=== PATIENT | female | born 1965 | race Caucasian/White ===

== ENCOUNTER 2016-08-12 15:33 | Emergency (ER) | payer OTHER ==
[~2016-08-12] VITALS: Ht 162.6 cm; Wt 101.8 kg
[~2016-08-12 15:33] MED LIST: ADDERALL XR 1515 MG PO; ADDERALL10 MG PO; ALBUTEROL SULF8.5 GM IH; ALBUTEROL17 GM IH; ALBUTEROL2.5 MG/0.5 IH; BENADRYL50 MG/ML IM; BENTYL10 MG PO; CARISOPRODOL350 MG PO; CEPHALEXIN500 MG PO; CIPRO500 MG PO; CITALOPRAM HBR20 MG PO; CLOTRIMAZOLE10 MG PO; COSENTYX (150 MG/1 M SC; CYANOCOBAL1000 MCG/2 IM; CYMBALTA30 MG PO; DAILY VALUE1 EACH PO; DESYREL100 MG PO; DIAZEPAM5 MG PO; DITROPAN5 MG PO; Desyrel PO; ENDOCET 10-3251 EACH PO; ENDOCET 5-3251 EACH PO; FLAGYL500 MG PO; FUROSEMIDE20 MG PO; GABAPENTIN300 MG PO; GABAPENTIN400 MG PO; K-DUR20 MEQ PO; KLONOPIN0.5 M1 PO; LAMOTRIGINE25 MG PO; LASIX20 MG PO; LASIX40 MG PO; LEVAQUIN500 MG PO; LEVBID0.375 MG PO; LEVSIN0.125 MG PO; LIDODERM 5% P1 PATCH TD; MEDROL DOSEPAK4 MG PO; METHADONE10 MG PO; MICRO-K10 ME2 PO; MORPHINE SULFAT15 M1 PO; MORPHINE SULFAT30 M1 PO; MS CONTIN,ORAMO15 M1 PO; MS Contin,Oramorph S PO; MULTIVITAMIN; MULTIVITAMIN IV; NEURONTIN100 MG PO; NEURONTIN300 MG PO; NEXIUM20 MG PO; OXYBUTYNIN CHLOR5 MG PO; PERCOCET 5/31 TABLET PO; PERCOCET 7.51 TABLET PO; PHENERGAN25 MG PR; POTASSIUM CHLO10 ME4 PO; PREDNISOLONE AC15 ML BOTH EYES; PREDNISONE10 M1 PO; PREDNISONE10 MG PO; PREDNISONE20 MG PO; PROAIR HFA8.5 GM IH; PROMETHAZINE HC25 M1 PO; PROTONIX40 MG PO; Percocet 5/325,Endoc PO; Protonix PO; REGLAN5 MG PO; REMICADE10 MG/ML IV; ROBAXIN750 MG PO; Reglan PO; SIMVASTATIN20 MG PO; SIMVASTATIN40 MG PO; SLOW RELEASE I142 M1 PO; SOLU-MEDRO1000 MG/1 IV; SOLU-MEDRO40 MG/1 ML IV; SOLU-MEDROL; SOMA350 M1 PO; TIZANIDINE HCL4 MG PO; TRAZODONE HCL100 MG PO; TYLENOL EXTRA500 MG PO; VALIUM5 MG PO; VICODIN,LORT1 TABLET PO; VITAMIN D400 UNI4 PO; ZANAFLEX2 M1 PO; ZANAFLEX2 MG PO; ZANAFLEX4 MG PO; ZANTAC150 MG PO; ZITHROMAX Z-PA250 MG PO; ZOCOR40 MG PO; ZOFRAN ODT4 MG PO; ZOFRAN4 MG PO; Zocor PO; [UNRECOGNIZED DRUG - OTHER] IV
[2016-08-12 16:20] LABS: HEMATOCRIT 37.1 % (36.0-46.0); MCH 28.2 PG (29.0-34.0); MCHC 31.5 G/DL (30.0-36.0); MCV 89.4 FL (83-99); MEAN PLAT.VOLUME 8.9 uM^3 (9.5-12.4); PLATELET COUNT 326 K/uL (156-360); RBC DIS.WIDTH-CV 15.3 % (11.8-14.6); RBC DIS.WIDTH-SD 49.3 % (39-53); RED BLOOD COUNT 4.15 M/uL (3.80-5.20); WHITE BLOOD COUNT 11.3 K/uL (4.1-10.2)
[2016-08-12 16:31] LABS: CHLORIDE 93 mEq/L (99-109); SODIUM 134 mEq/L (136-147)
[2016-08-12 16:33] LABS: GLUCOSE 116 mg/dL (70-99)
[2016-08-12 16:34] LABS: ANION GAP 12 MEQ/L (2-14)
[2016-08-12 16:36] LABS: GFR ESTIMATE (CALCULATED) > 59 mL/min/
[2016-08-12 16:37] LABS: UREA NITROGEN (BUN) 5 mg/dL (9-23)
[2016-08-12] MEDS ORDERED: ULTRAM50 MG PO (16:57)
[2016-08-12 17:10] VITALS: BP 116/57
== END 2016-08-12 17:11 | disposition home or self-care (01) ==
LOC: EME 15:33
DX: M54.9 Dorsalgia, unspecified (principal); G89.29 Other chronic pain; S20.20XA Contusion of thorax, unspecified, initial encounter; Y04.0XXA Assault by unarmed brawl or fight, initial encounter; J44.9 Chronic obstructive pulmonary disease, unspecified; K21.9 Gastro-esophageal reflux disease without esophagitis; M35.00 Sjogren syndrome, unspecified
CPT/HCPCS: 71020; 80048; 85027; 99281; 99284

== ENCOUNTER 2016-10-29 13:49 | Inpatient (IN) | payer OTHER ==
[~2016-10-29] VITALS: Ht 167.6 cm; Wt 96.6 kg
[~2016-10-29 13:49] MED LIST changes: +ULTRAM50 MG PO
[2016-10-29 14:37] LABS: MCH 28.9 PG (29.0-34.0); MCHC 32.3 G/DL (30.0-36.0); MCV 89.5 FL (83-99); MEAN PLAT.VOLUME 8.9 uM^3 (9.5-12.4); PLATELET COUNT 358 K/uL (156-360); RBC DIS.WIDTH-CV 16.6 % (11.8-14.6); RBC DIS.WIDTH-SD 54.7 % (39-53); RED BLOOD COUNT 4.47 M/uL (3.80-5.20); WHITE BLOOD COUNT 9.9 K/uL (4.1-10.2)
[2016-10-29 14:48] LABS: CHLORIDE 97 mEq/L (99-109)
[2016-10-29 14:49] LABS: SODIUM 139 mEq/L (136-147)
[2016-10-29 14:51] LABS: GLUCOSE 151 mg/dL (70-99)
[2016-10-29 14:52] LABS: ANION GAP 13 MEQ/L (2-14)
[2016-10-29 14:53] LABS: TOTAL BILIRUBIN 0.3 mg/dL (0.0-1.0)
[2016-10-29 14:54] LABS: ALKALINE PHOSPHATASE 152 IU/L (3-129); GFR ESTIMATE (CALCULATED) > 59 mL/min/
[2016-10-29 14:56] LABS: UREA NITROGEN (BUN) 3 mg/dL (9-23)
[2016-10-29 14:58] LABS: POTASSIUM 2.4 mEq/L (3.7-5.4)
[2016-10-29 15:03] LABS: QUANTITATIVE HCG 5.8 MIU/ML
[2016-10-29 16:16] LABS: ADD MIUA? YES; BILIRUBIN NEGATIVE; BLOOD SMALL; COLOR YELLOW ((YELLOW)); GLUCOSE (STRIP) NEGATIVE; KETONES NEGATIVE; LEUKOCYTES SMALL; NITRITE POSITIVE; PROTEIN (STRIP) NEGATIVE; SPECIFIC GRAVITY 1.008 (1.000-1.030); UROBILINOGEN 0.2 MG/DL (0.2-1.0)
[2016-10-29 16:25] LABS: BACTERIA 1+ /HPF; EPITHELIAL CELLS RARE /HPF; HYALINE CASTS TNTC /LPF; MUCUS NONE SEEN /LPF; RED BLOOD CELLS 0-5 /HPF (0-5); UCUL ADDED? NO; WHITE BLOOD CELLS 20-30 /HPF (0-5)
[2016-10-29 17:21] LABS: MAGNESIUM 1.2 mg/dL (1.3-2.7)
[2016-10-29] MEDS ORDERED: CITALOPRAM HBR40 MG PO (21:47)
[2016-10-29] MEDS ORDERED: NEURONTIN100 MG PO ×2 (21:48)
[2016-10-29] MEDS ORDERED: LIDOCAINE700 MG TD (21:50)
[2016-10-29] MEDS ORDERED: PREDNISONE20 MG PO (21:51)
[2016-10-29] MEDS ORDERED: PAXIL10 MG PO (21:52)
[2016-10-29] MEDS ORDERED: OXYCODONE HCL15 MG PO (21:52)
[2016-10-30] VITALS (12 sets, daily range): BP systolic 79–131; BP diastolic 38–61
[2016-10-30 06:39] LABS: HEMATOCRIT 34.2 % (36.0-46.0); MCH 28.7 PG (29.0-34.0); MCV 92.7 FL (83-99); MEAN PLAT.VOLUME 9.4 uM^3 (9.5-12.4); NRBC (%) 0.3 /100 WBC (0-0); PLATELET COUNT 295 K/uL (156-360); RBC DIS.WIDTH-CV 17.2 % (11.8-14.6); RBC DIS.WIDTH-SD 58.7 % (39-53); RED BLOOD COUNT 3.69 M/uL (3.80-5.20); WHITE BLOOD COUNT 7.1 K/uL (4.1-10.2)
[2016-10-30 06:47] LABS: ALKALINE PHOSPHATASE 111 IU/L (3-129); ANION GAP 6 MEQ/L (2-14); CHLORIDE 108 MEQ/L (99-109); GFR ESTIMATE (CALCULATED) > 59 mL/min/; MAGNESIUM 1.6 mg/dl (1.3-2.7); SAMPLE HEMOLYSIS CHECK 0; SAMPLE ICTERIC CHECK 0; SAMPLE LIPEMIA CHECK 0; SODIUM 145 MEQ/L (136-147); TOTAL BILIRUBIN 0.3 MG/DL (0.0-1.0); UREA NITROGEN (BUN) 2 mg/dL (9-23)
[2016-10-30 06:52] LABS: GLUCOSE 80 mg/dL (70-99); POTASSIUM 3.3 MEQ/L (3.7-5.4)
[2016-10-30 19:30] LABS: ANION GAP 6 MEQ/L (2-14); CHLORIDE 110 MEQ/L (99-109); GFR ESTIMATE (CALCULATED) > 59 mL/min/; POTASSIUM 3.2 MEQ/L (3.7-5.4); SAMPLE HEMOLYSIS CHECK 0; SAMPLE ICTERIC CHECK 0; SAMPLE LIPEMIA CHECK 0; SODIUM 141 MEQ/L (136-147); UREA NITROGEN (BUN) 2 mg/dL (9-23)
[2016-10-30 19:51] LABS: GLUCOSE 112 mg/dL (70-99)
[2016-10-31 07:01] LABS: HEMATOCRIT 34.7 % (36.0-46.0); MCH 28.8 PG (29.0-34.0); MCHC 30.8 G/DL (30.0-36.0); MCV 93.5 FL (83-99); MEAN PLAT.VOLUME 8.8 uM^3 (9.5-12.4); PLATELET COUNT 249 K/uL (156-360); RBC DIS.WIDTH-CV 17.4 % (11.8-14.6); RBC DIS.WIDTH-SD 59.9 % (39-53); RED BLOOD COUNT 3.71 M/uL (3.80-5.20)
[2016-10-31 07:13] LABS: WHITE BLOOD COUNT 11.6 K/uL (4.1-10.2)
[2016-10-31 07:28] LABS: ALKALINE PHOSPHATASE 120 IU/L (3-129); ANION GAP 7 MEQ/L (2-14); CHLORIDE 109 MEQ/L (99-109); DIRECT BILIRUBIN 0.1 mg/dL (0.0-0.3); GFR ESTIMATE (CALCULATED) > 59 mL/min/; GLUCOSE 88 mg/dL (70-99); POTASSIUM 3.6 MEQ/L (3.7-5.4); SAMPLE HEMOLYSIS CHECK 0; SAMPLE ICTERIC CHECK 0; SAMPLE LIPEMIA CHECK 0; SODIUM 141 MEQ/L (136-147); TOTAL BILIRUBIN 0.3 MG/DL (0.0-1.0)
[2016-10-31 07:40] LABS: UREA NITROGEN (BUN) < 2 mg/dL (9-23)
[2016-10-31 07:45] VITALS: BP 112/60
[2016-10-31 12:56] LABS: INTERNAL CONTROL VALID? YES
[2016-10-31 13:28] LABS: C DIFF TOXIN NEGATIVE (NEGATIVE); PROBE CHECK PASS; SPECIMEN PROCESSING CONTROL PASS
[2016-10-31 16:06] VITALS: BP 125/63
[2016-10-31 22:40] VITALS: BP 128/65
[2016-11-01 06:41] LABS: BASOPHIL COUNT 0.1 K/uL (0-0.1); EOSINOPHIL (%) 0.5 % (0-5); EOSINOPHIL COUNT 0.1 K/uL (0-0.3); HEMATOCRIT 35.5 % (36.0-46.0); IMMATURE GRANULOCYTE (%) 0.7 % (0.0-0.7); IMMATURE GRANULOCYTE COUNT 0.1 K/uL; INSTRUMENT ABS NEUTROPHIL CT 12.6 K/uL; LYMPHOCYTE COUNT 2.1 K/uL (1.0-2.8); MCH 28.9 PG (29.0-34.0); MCHC 31.5 G/DL (30.0-36.0); MCV 91.5 FL (83-99); MEAN PLAT.VOLUME 9.3 uM^3 (9.5-12.4); MONOCYTE (%) 7.4 % (3-12); MONOCYTE COUNT 1.2 K/uL (0-0.8); NEUTROPHIL (%) 78.3 % (45-76); NEUTROPHIL COUNT 12.6 K/uL (1.8-6.4); PLATELET COUNT 263 K/uL (156-360); RBC DIS.WIDTH-CV 17.2 % (11.8-14.6); RED BLOOD COUNT 3.88 M/uL (3.80-5.20)
[2016-11-01 06:42] LABS: WHITE BLOOD COUNT 16.1 K/uL (4.1-10.2)
[2016-11-01 07:00] VITALS: BP 134/88
[2016-11-01 07:20] LABS: ALKALINE PHOSPHATASE 120 IU/L (3-129); ANION GAP 9 MEQ/L (2-14); CHLORIDE 105 MEQ/L (99-109); GFR ESTIMATE (CALCULATED) > 59 mL/min/; GLUCOSE 102 mg/dL (70-99); POTASSIUM 3.5 MEQ/L (3.7-5.4); SAMPLE HEMOLYSIS CHECK 0; SAMPLE ICTERIC CHECK 0; SAMPLE LIPEMIA CHECK 0; SODIUM 140 MEQ/L (136-147)
[2016-11-01 07:24] LABS: TOTAL BILIRUBIN 0.6 MG/DL (0.0-1.0); UREA NITROGEN (BUN) < 2 mg/dL (9-23)
[2016-11-01 11:09] VITALS: BP 110/78
[2016-11-01 14:35] VITALS: BP 117/60
[2016-11-01 22:34] VITALS: BP 111/76
[2016-11-02 03:36] VITALS: BP 125/62
[2016-11-02 07:12] LABS: BASOPHIL COUNT 0.1 K/uL (0-0.1); EOSINOPHIL COUNT 0.1 K/uL (0-0.3); HEMATOCRIT 32.3 % (36.0-46.0); IMMATURE GRANULOCYTE (%) 0.5 % (0.0-0.7); IMMATURE GRANULOCYTE COUNT 0.1 K/uL; INSTRUMENT ABS NEUTROPHIL CT 9.3 K/uL; LYMPHOCYTE COUNT 2.3 K/uL (1.0-2.8); MCH 29.3 PG (29.0-34.0); MCHC 32.2 G/DL (30.0-36.0); MEAN PLAT.VOLUME 9.4 uM^3 (9.5-12.4); MONOCYTE (%) 10.5 % (3-12); MONOCYTE COUNT 1.4 K/uL (0-0.8); NEUTROPHIL (%) 69.9 % (45-76); NEUTROPHIL COUNT 9.3 K/uL (1.8-6.4); PLATELET COUNT 259 K/uL (156-360); RBC DIS.WIDTH-CV 17.5 % (11.8-14.6); RBC DIS.WIDTH-SD 58.9 % (39-53); RED BLOOD COUNT 3.55 M/uL (3.80-5.20); WHITE BLOOD COUNT 13.3 K/uL (4.1-10.2)
[2016-11-02 07:25] VITALS: BP 122/84
[2016-11-02 08:02] LABS: ALKALINE PHOSPHATASE 104 IU/L (3-129); ANION GAP 9 MEQ/L (2-14); CHLORIDE 104 MEQ/L (99-109); GFR ESTIMATE (CALCULATED) > 59 mL/min/; GLUCOSE 96 mg/dL (70-99); POTASSIUM 3.4 MEQ/L (3.7-5.4); SAMPLE HEMOLYSIS CHECK 0; SAMPLE ICTERIC CHECK 0; SAMPLE LIPEMIA CHECK 0; SODIUM 145 MEQ/L (136-147); TOTAL BILIRUBIN 0.6 MG/DL (0.0-1.0)
[2016-11-02 08:04] LABS: UREA NITROGEN (BUN) < 2 mg/dL (9-23)
[2016-11-02] MEDS ORDERED: ADVAIR HFA120 INHALA IH (09:06)
[2016-11-02] MEDS ORDERED: PROAIR HFA8.5 GM IH (09:06)
[2016-11-02] MEDS ORDERED: LEVOFLOXACIN750 MG PO (09:06)
[2016-11-02] MEDS ORDERED: SPIRIVA RESPIMAT4 GM IH (09:06)
[2016-11-02] MEDS ORDERED: METRONIDAZOLE500 MG PO (09:06)
[2016-11-02] MEDS ORDERED: PREDNISONE20 MG PO (09:06)
[2016-11-02 10:55] VITALS: BP 123/60
[2016-11-02 19:20] VITALS: BP 101/56
[2016-11-02 22:52] VITALS: BP 112/59
[2016-11-03 03:10] VITALS: BP 112/68; BP 142/79
[2016-11-03 07:13] VITALS: BP 108/64
[2016-11-03 10:49] VITALS: BP 100/68
== END 2016-11-03 15:49 | disposition home or self-care (01) | DRG 392 ==
LOC: EME 13:49 → EDOF 21:07 → 5EAST 21:07 → 3EAST 10-30 00:15 → 5EAST 10-30 18:12
PROVIDERS: Internal Medicine; Nurse Practitioner Adult Health; Physician Assistant
DX: K52.9 Noninfective gastroenteritis and colitis, unspecified (principal); J90 Pleural effusion, not elsewhere classified; N39.0 Urinary tract infection, site not specified; J44.9 Chronic obstructive pulmonary disease, unspecified; E86.0 Dehydration; E83.42 Hypomagnesemia; M35.00 Sjogren syndrome, unspecified; E87.6 Hypokalemia; E66.01 Morbid (severe) obesity due to excess calories; K21.9 Gastro-esophageal reflux disease without esophagitis; R09.02 Hypoxemia; F32.9 Major depressive disorder, single episode, unspecified; M45.9 Ankylosing spondylitis of unspecified sites in spine; F17.210 Nicotine dependence, cigarettes, uncomplicated; F90.0 Attention-deficit hyperactivity disorder, predominantly inattentive type; M79.7 Fibromyalgia; Z59.0 Homelessness; F41.9 Anxiety disorder, unspecified; E78.5 Hyperlipidemia, unspecified; Z68.34 Body mass index [BMI] 34.0-34.9, adult; B96.1 Klebsiella pneumoniae [K. pneumoniae] as the cause of diseases classified elsewhere
CPT/HCPCS: 71020; 74177; 80048; 80048 91; 80053; 80076; 81003; 83605; 83630; 83735; 84100; 84702; 85025; 85027; 87077; 87086; 87177; 87186; 87493; 87506; 88305; 88313; 88342 TC; 93005; 94640; 94640 76; 94760; 94799; 99202; 99281; 99285; J0744; J1644; J2405; J3475; J3480; J7030; J7512; S0028; S0030

== ENCOUNTER 2017-01-26 11:44 | Emergency (ER) | payer OTHER ==
[~2017-01-26] VITALS: Ht 162.6 cm; Wt 94.8 kg
[~2017-01-26 11:44] MED LIST changes: +ADVAIR HFA120 INHALA IH; +CITALOPRAM HBR40 MG PO; +LEVOFLOXACIN750 MG PO; +LIDOCAINE700 MG TD; +METRONIDAZOLE500 MG PO; +OXYCODONE HCL15 MG PO; +PAXIL10 MG PO; +SPIRIVA RESPIMAT4 GM IH
[2017-01-26] MEDS ORDERED: LIDODERM 5% P1 PATCH TD (14:04)
[2017-01-26] MEDS ORDERED: BACLOFEN10 MG PO (14:04)
[2017-01-26 14:18] VITALS: BP 141/70
== END 2017-01-26 14:32 | disposition home or self-care (01) ==
LOC: EME 11:44
DX: M25.859 Other specified joint disorders, unspecified hip (principal); M16.11 Unilateral primary osteoarthritis, right hip; L98.9 Disorder of the skin and subcutaneous tissue, unspecified; Z88.2 Allergy status to sulfonamides; Z88.0 Allergy status to penicillin; Z88.6 Allergy status to analgesic agent
CPT/HCPCS: 73502; 99281; 99283

== ENCOUNTER 2017-02-16 14:27 | Emergency (ER) | payer OTHER ==
[~2017-02-16] VITALS: Ht 167.6 cm; Wt 95.0 kg
[~2017-02-16 14:27] MED LIST changes: +BACLOFEN10 MG PO
[2017-02-16 17:20] VITALS: BP 124/69
== END 2017-02-16 17:25 | disposition home or self-care (01) ==
LOC: EME 14:27
DX: M79.89 Other specified soft tissue disorders (principal); M25.551 Pain in right hip; S39.012A Strain of muscle, fascia and tendon of lower back, initial encounter; X58.XXXA Exposure to other specified factors, initial encounter; G89.29 Other chronic pain; Z79.891 Long term (current) use of opiate analgesic; R11.0 Nausea; Z79.52 Long term (current) use of systemic steroids; F17.200 Nicotine dependence, unspecified, uncomplicated
CPT/HCPCS: 99281; 99283; J3010

== ENCOUNTER 2017-05-14 10:30 | Day surgery (SDC) | payer OTHER ==
[~2017-05-14] VITALS: Ht 167.6 cm; Wt 91.0 kg
[~2017-05-14 10:30] MED LIST changes: +ANTIDEPRESSANT PO; +BENTYL20 MG PO; +EFFEXOR XR150 MG PO; +IRON325 M1 PO
[2017-05-14 11:16] VITALS: BP 117/94
[2017-05-14 15:24] VITALS: BP 142/67
[2017-05-14 15:50] VITALS: BP 139/80
== END 2017-05-14 16:05 | disposition home or self-care (01) ==
LOC: SDC 10:30
DX: T85.113A Breakdown (mechanical) of implanted electronic neurostimulator, generator, initial encounter (principal); G89.4 Chronic pain syndrome; J44.9 Chronic obstructive pulmonary disease, unspecified; E66.9 Obesity, unspecified; Z68.33 Body mass index [BMI] 33.0-33.9, adult; D86.9 Sarcoidosis, unspecified; M81.0 Age-related osteoporosis without current pathological fracture; K21.9 Gastro-esophageal reflux disease without esophagitis; E78.5 Hyperlipidemia, unspecified; Z88.2 Allergy status to sulfonamides; F17.210 Nicotine dependence, cigarettes, uncomplicated
CPT/HCPCS: 94640; J0330; J1100; J1170; J2250; J2405; J3010; J3370

== ENCOUNTER 2017-05-21 10:32 | Emergency (ER) | payer OTHER ==
[~2017-05-21] VITALS: Ht 162.6 cm; Wt 95.0 kg
[2017-05-21 12:10] LABS: BASOPHIL COUNT 0.1 K/uL (0-0.1); EOSINOPHIL (%) 0.2 % (0-5); HEMATOCRIT 39.3 % (36.0-46.0); IMMATURE GRANULOCYTE (%) 0.9 % (0.0-0.7); IMMATURE GRANULOCYTE COUNT 0.2 K/uL; INSTRUMENT ABS NEUTROPHIL CT 12.4 K/uL; LYMPHOCYTE COUNT 4.5 K/uL (1.0-2.8); MCH 26.3 PG (29.0-34.0); MCHC 31.6 G/DL (30.0-36.0); MCV 83.3 FL (83-99); MEAN PLAT.VOLUME 8.6 uM^3 (9.5-12.4); MONOCYTE (%) 4.8 % (3-12); MONOCYTE COUNT 0.9 K/uL (0-0.8); NEUTROPHIL COUNT 12.4 K/uL (1.8-6.4); PLATELET COUNT 518 K/uL (156-360); RBC DIS.WIDTH-CV 19.1 % (11.8-14.6); RED BLOOD COUNT 4.72 M/uL (3.80-5.20)
[2017-05-21 12:17] LABS: CHLORIDE 99 mEq/L (99-109); POTASSIUM 3.9 mEq/L (3.7-5.4); SODIUM 136 mEq/L (136-147)
[2017-05-21 12:20] LABS: GLUCOSE 133 mg/dL (70-99)
[2017-05-21 12:21] LABS: ANION GAP 11 MEQ/L (2-14)
[2017-05-21 12:22] LABS: TOTAL BILIRUBIN 0.4 mg/dL (0.0-1.0)
[2017-05-21 12:23] LABS: ALKALINE PHOSPHATASE 130 IU/L (3-129); GFR ESTIMATE (CALCULATED) > 59 mL/min/
[2017-05-21 12:24] LABS: UREA NITROGEN (BUN) 6 mg/dL (9-23)
[2017-05-21 12:30] LABS: TROP-I INTERPRETATION NEGATIVE; TROPONIN-I < 0.01 ng/mL (0.0-0.30)
[2017-05-21 14:39] VITALS: BP 135/89
== END 2017-05-21 14:41 | disposition left against medical advice (07) ==
LOC: EME 10:32
PROVIDERS: Emergency Medicine
DX: R06.2 Wheezing (principal); R06.02 Shortness of breath; J44.9 Chronic obstructive pulmonary disease, unspecified; D86.9 Sarcoidosis, unspecified; M79.7 Fibromyalgia; E78.5 Hyperlipidemia, unspecified; F17.200 Nicotine dependence, unspecified, uncomplicated; Z88.0 Allergy status to penicillin; Z88.8 Allergy status to other drugs, medicaments and biological substances
CPT/HCPCS: 71020; 80053; 83880; 84484; 85025; 94640; 99281; 99284; J2930; J3475

== ENCOUNTER 2017-08-27 18:22 | Inpatient (IN) | payer OTHER ==
[~2017-08-27] VITALS: Ht 162.6 cm; Wt 95.4 kg
[2017-08-27 19:16] LABS: HEMOGLOBIN 13.6 G/DL (11.9-15.5); MCH 30.1 PG (29.0-34.0); MCHC 32.4 G/DL (30.0-36.0); MCV 92.9 FL (83-99); PLATELET COUNT 417 K/uL (156-360); RBC DIS.WIDTH-SD 54.6 % (39-53); RED BLOOD COUNT 4.52 M/uL (3.80-5.20); WHITE BLOOD COUNT 20.5 K/uL (4.1-10.2)
[2017-08-27 19:24] LABS: ALBUMIN 3.8 g/dL (3.2-4.8)
[2017-08-27 19:25] LABS: CHLORIDE 96 mEq/L (99-109); POTASSIUM 4.5 mEq/L (3.7-5.4); SODIUM 138 mEq/L (136-147)
[2017-08-27 19:27] LABS: GLUCOSE 80 mg/dL (70-99); TOTAL PROTEIN 6.6 g/dL (6.4-8.3)
[2017-08-27 19:29] LABS: TOTAL BILIRUBIN 0.1 mg/dL (0.0-1.0)
[2017-08-27 19:30] LABS: ALKALINE PHOSPHATASE 121 IU/L (3-129)
[2017-08-27 19:31] LABS: CREATININE 0.7 mg/dL (0.6-1.3); GFR ESTIMATE (CALCULATED) > 59 mL/min/
[2017-08-27 19:32] LABS: AST (GOT) 16 IU/L (2-34); UREA NITROGEN (BUN) 7 mg/dL (9-23)
[2017-08-27 19:34] LABS: ALT (GPT) 20 IU/L (3-49)
[2017-08-27 19:40] LABS: QUANTITATIVE HCG < 4.0 MIU/ML
[2017-08-27 20:25] LABS: LIPASE 11 U/L (1.0-51.0)
[2017-08-27 21:02] LABS: APPEARANCE CLEAR ((CLEAR)); BILIRUBIN NEGATIVE; BLOOD SMALL; COLOR COLORLESS ((YELLOW)); GLUCOSE (STRIP) NEGATIVE; KETONES NEGATIVE; LEUKOCYTES NEGATIVE; NITRITE NEGATIVE; PROTEIN (STRIP) NEGATIVE; SPECIFIC GRAVITY 1.011 (1.000-1.030); UROBILINOGEN 0.2 MG/DL (0.2-1.0)
[2017-08-27 21:12] LABS: BACTERIA NONE SEEN /HPF; EPITHELIAL CELLS RARE /HPF; MUCUS NONE SEEN /LPF; RED BLOOD CELLS 0-5 /HPF (0-5); UCUL ADDED? NO; WHITE BLOOD CELLS 0-5 /HPF (0-5)
[2017-08-27 21:16] LABS: TROP-I INTERPRETATION NEGATIVE; TROPONIN-I < 0.01 ng/mL (0.0-0.30)
[2017-08-27 22:42] LABS: D-DIMER ELISA < 150.00 ng/mLDDU (<230)
[2017-08-27 23:00] LABS: TROP-I INTERPRETATION NEGATIVE; TROPONIN-I < 0.01 ng/mL (0.0-0.30)
[2017-08-28 06:12] VITALS: BP 156/76
== END 2017-08-28 06:05 | disposition left against medical advice (07) | DRG 192 ==
LOC: EME 18:22 → EXP 18:22 → EDOF 08-28 00:43 → CANRESERV 08-28 00:45 → ENRESERV 08-28 00:45 → EDOF 08-28 05:40
PROVIDERS: Physician Assistant Medical
DX: J44.1 Chronic obstructive pulmonary disease with (acute) exacerbation (principal); R10.11 Right upper quadrant pain; E78.5 Hyperlipidemia, unspecified; F32.9 Major depressive disorder, single episode, unspecified; F41.9 Anxiety disorder, unspecified; G89.29 Other chronic pain; M79.7 Fibromyalgia; M45.9 Ankylosing spondylitis of unspecified sites in spine; K59.00 Constipation, unspecified; M35.00 Sjogren syndrome, unspecified; G43.909 Migraine, unspecified, not intractable, without status migrainosus; F17.210 Nicotine dependence, cigarettes, uncomplicated; Z79.891 Long term (current) use of opiate analgesic; Z88.2 Allergy status to sulfonamides; Z88.0 Allergy status to penicillin
CPT/HCPCS: 71046; 74177; 80053; 81003; 83605; 83690; 84484; 84702; 85027; 85379; 87040; 93005; 94640; 94640 76; 94799; 99202; 99281; 99285; C9113; J1100; J1956; J2270; J2405; J3010; J7030

== ENCOUNTER 2017-12-11 08:57 | Emergency (ER) | payer OTHER ==
[~2017-12-11] VITALS: Ht 167.6 cm; Wt 94.1 kg
[2017-12-11] MEDS ORDERED: CEFUROXIME500 MG PO (09:43)
[2017-12-11 09:46] LABS: HEMATOCRIT 39.9 % (36.0-46.0); HEMOGLOBIN 13.3 G/DL (11.9-15.5); MCH 31.1 PG (29.0-34.0); MCHC 33.3 G/DL (30.0-36.0); MCV 93.4 FL (83-99); PLATELET COUNT 311 K/uL (156-360); RBC DIS.WIDTH-CV 13.1 % (11.8-14.6); RBC DIS.WIDTH-SD 45.3 % (39-53); RED BLOOD COUNT 4.27 M/uL (3.80-5.20); WHITE BLOOD COUNT 8.2 K/uL (4.1-10.2)
[2017-12-11 09:55] LABS: ALBUMIN 3.5 g/dL (3.2-4.8); CHLORIDE 99 mEq/L (99-109); POTASSIUM 4.7 mEq/L (3.7-5.4); SODIUM 139 mEq/L (136-147)
[2017-12-11 09:58] LABS: GLUCOSE 93 mg/dL (70-99); TOTAL PROTEIN 6.4 g/dL (6.4-8.3)
[2017-12-11 09:59] LABS: TOTAL BILIRUBIN 0.2 mg/dL (0.0-1.0)
[2017-12-11 10:01] LABS: ALKALINE PHOSPHATASE 129 IU/L (3-129); CREATININE 0.9 mg/dL (0.6-1.3); GFR ESTIMATE (CALCULATED) > 59 mL/min/
[2017-12-11 10:02] LABS: UREA NITROGEN (BUN) 4 mg/dL (9-23)
[2017-12-11 10:03] LABS: AST (GOT) 14 IU/L (2-34)
[2017-12-11 10:04] LABS: ALT (GPT) 9 IU/L (3-49)
[2017-12-11 10:08] LABS: TROP-I INTERPRETATION NEGATIVE; TROPONIN-I < 0.01 ng/mL (0.0-0.30)
[2017-12-11 13:05] LABS: TROP-I INTERPRETATION NEGATIVE; TROPONIN-I < 0.01 ng/mL (0.0-0.30)
[2017-12-11 13:28] VITALS: BP 104/67
== END 2017-12-11 13:30 | disposition home or self-care (01) ==
LOC: EME 08:57
PROVIDERS: Emergency Medicine Emergency Medical Services
DX: R07.9 Chest pain, unspecified (principal); J44.1 Chronic obstructive pulmonary disease with (acute) exacerbation; L03.114 Cellulitis of left upper limb; R11.0 Nausea; I87.2 Venous insufficiency (chronic) (peripheral); R60.0 Localized edema; F17.200 Nicotine dependence, unspecified, uncomplicated; M79.7 Fibromyalgia; Z88.2 Allergy status to sulfonamides; Z88.0 Allergy status to penicillin; Z88.8 Allergy status to other drugs, medicaments and biological substances
CPT/HCPCS: 71045; 80053; 83880; 84484; 85027; 93005; 93971; 94640; 99281; 99284

== ENCOUNTER 2018-02-12 14:06 | Emergency (ER) | payer OTHER ==
[~2018-02-12] VITALS: Ht 167.6 cm; Wt 93.6 kg
[~2018-02-12 14:06] MED LIST changes: +CEFUROXIME500 MG PO
[2018-02-12] MEDS ORDERED: LAMOTRIGINE100 MG PO (14:33)
[2018-02-12] MEDS ORDERED: SIMVASTATIN40 MG PO (14:33)
[2018-02-12] MEDS ORDERED: PANTOPRAZOLE SO40 MG PO (14:33)
[2018-02-12] MEDS ORDERED: CITALOPRAM HBR40 MG PO (14:34)
[2018-02-12] MEDS ORDERED: CLONAZEPAM0.5 MG PO (14:34)
[2018-02-12] MEDS ORDERED: OXYCODONE HCL15 MG PO (14:34)
[2018-02-12] MEDS ORDERED: PREDNISONE5 MG PO (14:35)
[2018-02-12] MEDS ORDERED: TIZANIDINE HCL4 MG PO (14:35)
[2018-02-12] MEDS ORDERED: BENTYL20 MG PO (14:36)
[2018-02-12] MEDS ORDERED: DESYREL100 MG PO (14:36)
[2018-02-12] MEDS ORDERED: PROMETHAZINE HC25 M1 PO (14:36)
[2018-02-12] MEDS ORDERED: POTASSIUM CHLO10 ME4 PO (14:38)
[2018-02-12] MEDS ORDERED: FUROSEMIDE40 MG PO (14:38)
[2018-02-12] MEDS ORDERED: METOCLOPRAMIDE H5 MG PO (14:39)
[2018-02-12 14:55] LABS: HEMATOCRIT 38.8 % (36.0-46.0); HEMOGLOBIN 12.9 G/DL (11.9-15.5); MCH 31.8 PG (29.0-34.0); MCHC 33.2 G/DL (30.0-36.0); MCV 95.6 FL (83-99); PLATELET COUNT 292 K/uL (156-360); RBC DIS.WIDTH-CV 14.6 % (11.8-14.6); RBC DIS.WIDTH-SD 51.4 % (39-53); RED BLOOD COUNT 4.06 M/uL (3.80-5.20); WHITE BLOOD COUNT 11.5 K/uL (4.1-10.2)
[2018-02-12 15:08] LABS: ALBUMIN 4.1 g/dL (3.2-4.8); CHLORIDE 103 mEq/L (99-109); POTASSIUM 4.2 mEq/L (3.7-5.4); SODIUM 137 mEq/L (136-147)
[2018-02-12 15:10] LABS: GLUCOSE 93 mg/dL (70-99); TOTAL PROTEIN 6.9 g/dL (6.4-8.3)
[2018-02-12 15:12] LABS: TOTAL BILIRUBIN 0.2 mg/dL (0.0-1.0)
[2018-02-12 15:14] LABS: ALKALINE PHOSPHATASE 101 IU/L (3-129); CREATININE 0.8 mg/dL (0.6-1.3); GFR ESTIMATE (CALCULATED) > 59 mL/min/
[2018-02-12 15:15] LABS: UREA NITROGEN (BUN) 5 mg/dL (9-23)
[2018-02-12 15:16] LABS: AST (GOT) 14 IU/L (2-34)
[2018-02-12 15:17] LABS: ALT (GPT) 10 IU/L (3-49); LIPASE 10 U/L (1.0-51.0)
[2018-02-12 15:18] LABS: TROP-I INTERPRETATION NEGATIVE; TROPONIN-I < 0.01 ng/mL (0.0-0.30)
[2018-02-12] MEDS ORDERED: TESSALON PERLE100 MG PO (16:17)
[2018-02-12] MEDS ORDERED: PREDNISONE20 MG PO (16:17)
[2018-02-12] MEDS ORDERED: ROBITUSSIN100 MG/5 M PO (16:17)
[2018-02-12] MEDS ORDERED: VENTOLIN HFA18 GM IH (16:17)
[2018-02-12 16:30] VITALS: BP 139/65
== END 2018-02-12 16:31 | disposition home or self-care (01) ==
LOC: EME 14:06
PROVIDERS: Nurse Practitioner Family
DX: R05 Cough (principal); J44.9 Chronic obstructive pulmonary disease, unspecified; F17.200 Nicotine dependence, unspecified, uncomplicated; R09.3 Abnormal sputum; R07.9 Chest pain, unspecified; R11.10 Vomiting, unspecified; Z71.6 Tobacco abuse counseling
CPT/HCPCS: 71046; 80053; 83690; 84484; 85027; 93005; 94640; 99281; 99285; J2405; J2930

== ENCOUNTER 2018-03-10 12:24 | Emergency (ER) | payer OTHER ==
[~2018-03-10] VITALS: Ht 160 cm; Wt 94.3 kg
[~2018-03-10 12:24] MED LIST changes: +CLONAZEPAM0.5 MG PO; +FUROSEMIDE40 MG PO; +LAMOTRIGINE100 MG PO; +METOCLOPRAMIDE H5 MG PO; +PANTOPRAZOLE SO40 MG PO; +PREDNISONE5 MG PO; +ROBITUSSIN100 MG/5 M PO; +TESSALON PERLE100 MG PO; +VENTOLIN HFA18 GM IH
[2018-03-10 14:48] LABS: HEMATOCRIT 39.7 % (36.0-46.0); HEMOGLOBIN 13.6 G/DL (11.9-15.5); MCH 32.4 PG (29.0-34.0); MCHC 34.3 G/DL (30.0-36.0); MCV 94.5 FL (83-99); PLATELET COUNT 302 K/uL (156-360); RBC DIS.WIDTH-CV 14.4 % (11.8-14.6); RBC DIS.WIDTH-SD 49.8 % (39-53); WHITE BLOOD COUNT 13.8 K/uL (4.1-10.2)
[2018-03-10 15:01] LABS: ALBUMIN 4.3 g/dL (3.2-4.8); CHLORIDE 98 mEq/L (99-109); POTASSIUM 4.4 mEq/L (3.7-5.4); SODIUM 137 mEq/L (136-147)
[2018-03-10 15:02] VITALS: BP 108/60
[2018-03-10 15:03] LABS: GLUCOSE 126 mg/dL (70-99); TOTAL PROTEIN 7.1 g/dL (6.4-8.3)
[2018-03-10 15:05] LABS: TOTAL BILIRUBIN 0.3 mg/dL (0.0-1.0)
[2018-03-10 15:07] LABS: ALKALINE PHOSPHATASE 98 IU/L (3-129); CREATININE 0.8 mg/dL (0.6-1.3); GFR ESTIMATE (CALCULATED) > 59 mL/min/
[2018-03-10 15:08] LABS: UREA NITROGEN (BUN) 6 mg/dL (9-23)
[2018-03-10 15:09] LABS: AST (GOT) 15 IU/L (2-34)
[2018-03-10 15:10] LABS: ALT (GPT) 15 IU/L (3-49)
[2018-03-10 15:18] LABS: ERTH.SED.RATE 8 MM/HR (0-30)
[2018-03-10 15:54] LABS: C-REACTIVE PROTEIN 2.8 MG/L (0-10)
== END 2018-03-10 15:16 | disposition left against medical advice (07) ==
LOC: EME 12:24
PROVIDERS: Nurse Practitioner Family
DX: M54.5 Low back pain (principal); G89.29 Other chronic pain; R11.2 Nausea with vomiting, unspecified; Z79.891 Long term (current) use of opiate analgesic; J45.909 Unspecified asthma, uncomplicated; M79.7 Fibromyalgia; Z88.2 Allergy status to sulfonamides; Z88.0 Allergy status to penicillin; F17.210 Nicotine dependence, cigarettes, uncomplicated; Z71.6 Tobacco abuse counseling
CPT/HCPCS: 80053; 85027; 85651; 86140; 94640; J0595